=== PATIENT | male | born 1960 | race Caucasian/White ===

== ENCOUNTER 2020-09-22 12:10 | Emergency (ER) | payer MEDICARE, OTHER ==
[~2020-09-22] VITALS: Wt 118.4 kg
[~2020-09-22 12:10] MED LIST: ANUSOL-HC25 MG R; ASPIRIN81 M1 PO; CARDIZEM CD360 MG PO; COLACE100 MG PO; COUMADIN3 M1 PO; LEVAQUIN750 M1 PO; NEURONTIN800 MG PO; OXYCODONE AND A1 TA4 PO; OXYCODONE HCL10 M1 PO; OXYCODONE5 M1 PO; OXYCONTIN20 M1 PO; PERCOCET 325 MG1 TA2 PO; PRINIVIL20 M1 PO; SOMA350 MG PO; VALIUM10 MG PO; VIAGRA100 MG PO; XANAX2 M1 PO; ZOCOR40 MG PO
[2020-09-22 13:03] LABS: MEAN CORPUSCULAR HGB CONC 31.9 g/dl (33.0-37.0); MEAN PLATELET VOLUME 10.4 fl (9.6-12.3); PLATELET COUNT AUTOMATED 251 10*3/uL (130-400); RED BLOOD COUNT 6.33 10*6/uL (4.50-5.90); RED CELL DISTRI WIDTH 16.1 % (0-14.5); WHITE BLOOD COUNT 12.8 10*3/uL (4.8-10.8)
[2020-09-22 13:06] LABS: HEMATOCRIT 61.4 % (42.0-52.0)
[2020-09-22 13:16] LABS: ALKALINE PHOSPHATASE 83 U/L (45-117); BUN 14 mg/dl (7-24); CHLORIDE 109 mmol/L (98-107); CREATININE 1.16 mg/dL (0.70-1.30); LIPASE 377 U/L (73-393); POTASSIUM 4.4 mmol/L (3.5-5.1); SGOT/AST 17 IU/L (3-35); SGPT/ALT 22 U/L (12-78); SODIUM 140 mmol/L (136-145)
[2020-09-22 13:18] LABS: TROPONIN I < 0.015 ng/ml (<0.045)
[2020-09-22 13:22] LABS: ATYPICAL LYMPHS 1 % (0-0); BASOPHILS 1 % (0-1); PLATELET SUFFICIENCY NORMAL (NORMAL); TOTAL CELLS COUNTED 100 #CELLS
[2020-09-22 14:39] LABS: ACT PARTIAL THROMBO TIME 36.2 SECONDS (20.0-32.1); INTERNATIONAL NORM RATIO 2.4 (2.0-3.5)
[2020-09-22] MEDS ORDERED: PERCOCET 10-321 EACH PO (16:28)
== END 2020-09-22 16:50 | disposition home or self-care (01) ==
LOC: ED 12:10
PROVIDERS: Emergency Medicine
DX: M54.2 Cervicalgia (principal); R07.0 Pain in throat; G89.29 Other chronic pain; Z88.8 Allergy status to other drugs, medicaments and biological substances; Z79.899 Other long term (current) drug therapy

== ENCOUNTER 2020-10-10 15:09 | Emergency (ER) | payer MEDICARE, OTHER ==
[~2020-10-10] VITALS: Ht 185.4 cm; Wt 111.1 kg
[~2020-10-10 15:09] MED LIST changes: +PERCOCET 10-321 EACH PO
[2020-10-10 16:53] LABS: BASO # 0.1 10*3/uL (0.0-0.1); BASO % 0.5 % (0.0-1.0); EOS # 0.1 10*3/uL (0.0-0.4); EOS % 1.2 % (1.0-4.0); HEMATOCRIT 58.5 % (42.0-52.0); LYMPH # 1.9 10*3/uL (1.3-4.4); LYMPH % 18.4 % (27.0-41.0); MEAN CORPUSCULAR HGB 30.7 pg (27.0-31.0); MEAN CORPUSCULAR HGB CONC 31.6 g/dl (33.0-37.0); MEAN PLATELET VOLUME 9.8 fl (9.6-12.3); MONO # 0.8 10*3/uL (0.1-1.0); MONO % 7.6 % (3.0-9.0); NEUT # 7.2 10*3/uL (2.3-7.9); NEUT % 71.9 % (47.0-73.0); PLATELET COUNT AUTOMATED 266 10*3/uL (130-400); RED BLOOD COUNT 6.03 10*6/uL (4.50-5.90); RED CELL DISTRI WIDTH 15.9 % (0-14.5); WHITE BLOOD COUNT 10.1 10*3/uL (4.8-10.8)
[2020-10-10 17:04] LABS: ACT PARTIAL THROMBO TIME 34.3 SECONDS (20.0-32.1); INTERNATIONAL NORM RATIO 2.1 (2.0-3.5)
[2020-10-10 17:09] LABS: ALBUMIN 3.2 gm/dl (3.1-4.5); ALKALINE PHOSPHATASE 72 U/L (45-117); BUN 16 mg/dl (7-24); CHLORIDE 111 mmol/L (98-107); CREATININE 1.08 mg/dL (0.70-1.30); LIPASE 59 U/L (73-393); POTASSIUM 4.7 mmol/L (3.5-5.1); SGOT/AST 11 IU/L (3-35); SGPT/ALT 14 U/L (12-78); SODIUM 143 mmol/L (136-145); TOTAL PROTEIN 7.1 gm/dL (6.4-8.2)
[2020-10-10 17:34] LABS: TROPONIN I < 0.015 ng/ml (<0.045)
[2020-10-10] MEDS ORDERED: ZITHROMAX250 MG PO (18:42)
[2020-10-10] MEDS ORDERED: PERCOCET 10-321 EACH PO (18:43)
== END 2020-10-10 19:05 | disposition home or self-care (01) ==
LOC: ED 15:09
PROVIDERS: Emergency Medicine
DX: J18.9 Pneumonia, unspecified organism (principal); Z88.6 Allergy status to analgesic agent; Z79.899 Other long term (current) drug therapy; Z79.82 Long term (current) use of aspirin; Z79.01 Long term (current) use of anticoagulants